=== PATIENT | female | born 1955 | race Caucasian/White ===

== ENCOUNTER → 2018-10-15 09:43 | Outpatient (CLI) | payer SELFPAY ==
[2018-10-15 08:57] VITALS: BMI 34.3
[2018-10-15 11:14] LABS: Hematocrit 39.9 % (37-47); Hemoglobin 12.7 g/dl (12.0-15.0); Mean Corp Hgb Conc 31.8 g/gl (32-36); Mean Corpuscular Hgb 28.4 pg (27.0-32.0); Mean Corpuscular Volume 89.3 fL (81-99); Mean Platelet Vol. 10.7 fl (6.2-12.0); Platelet Count 354 K/mm3 (150-450); RBC Distribution Width CV 14.1 % (11.6-14.6); RBC Distribution Width SD 45.1 fl (35.1-43.9); Red Blood Count 4.47 M/mm3 (4.2-5.4); Scan Indicated on CBC? Y/N NO
[2018-10-15 11:29] LABS: Microalbumin,Random Urine 85.5 mg/L (NO RANGE EST.); Microalbumin:Creatinine Ratio 191.3 mg/g CRE (<30 mg/g CRE)
[2018-10-15 11:32] LABS: Hemoglobin A1c 6.9 % (4.2-6.3)
[2018-10-15 11:54] LABS: ALB/GLOB Ratio 0.7 RATIO (0.9-2.4); AST(SGOT) 16 U/L (15-37); Alanine Aminotransfer ALT/SGPT 19 U/L (13-56); Alkaline Phosphatase 71 U/L (45-117); Anion Gap 9 (5-15); BUN 19 mg/dL (7-18); BUN/Creat Ratio 23.2 RATIO (10-20); Calcium,Total 9.2 mg/dL (8.5-10.1); Chloride 106 mmol/L (98-107); Creatinine, Serum 0.82 mg/dL (0.55-1.02); EST Glomerular Filtration Rate 75 mL/min (>60); Est Glom Filt Rate - Afr Amer 91 mL/min (>60); Globulin 4.3 g/dL (2.2-4.2); Glucose 84 mg/dL (74-106); Potassium 4.6 mmol/L (3.5-5.1); Protein, Total 7.3 g/dL (6.4-8.2); Sodium Level 142 mmol/L (136-145)
== END ==
PROVIDERS: Family Provider Family Medicine; PCP Family Medicine; Referring Provider Nurse Practitioner; Visit Provider Nurse Practitioner
DX: E11.42 Type 2 diabetes mellitus with diabetic polyneuropathy (principal)
CPT/HCPCS: 36415; 80053; 82043; 82570; 83036; 85027

== ENCOUNTER → 2019-01-27 17:02 | Outpatient (CLI) | payer SELFPAY ==
[2018-10-19 11:37] VITALS: BMI 34.3
[2019-01-27 17:49] LABS: International Normalized Ratio 1.8; Prothrombin Time (Protime)PT. 20.6 SECONDS (11.7-14.9)
== END ==
PROVIDERS: Family Provider Family Medicine; PCP Family Medicine; Referring Provider Family Medicine; Visit Provider Family Medicine
DX: I48.0 Paroxysmal atrial fibrillation (principal)
CPT/HCPCS: 85610

== ENCOUNTER → 2021-05-29 12:34 | Outpatient (CLI) | payer SELFPAY ==
[2018-10-19 11:37] VITALS: BMI 34.3
--- NOTE | 2021-05-29 12:37 | VDLE_ITS ---
Reason For Study: R/O DVT RIGHT LEFT CFV is compressible, spontaneous, phasic, GSV is normal. competent and demonstrates normal CFV is compressible, spontaneous, phasic, augmentation. competent, and demonstrates normal Procedure augmentation. This is a venous duplex using B-mode, color FV is compressible, spontaneous, phasic, flow and spectral Doppler. competent and demonstrates normal Exam performed in department. augmentation. A preliminary report was called and/or faxed POP V is compressible, spontaneous, phasic, to Yared. competent and demonstrates normal augmentation. T/P Trunk is compressible. PTV is compressible. LT PerV is compressible. Large nonvascularized structure noted in the left popliteal fossa measuring approximentl 1.74 x 4.67 cm. VL/Venous Duplex US, Unilateral Interpretation Summary Deep veins of the left lower extremity are patent and compressible segmentally. There is no evidence of left lower extremity deep vein thrombosis. Valvular competence appears intac t within the proximal deep venous system on the left . The left great saphenous vein appears patent a nd compressible segmentally. A non-vascular structure is noted in the left popliteal space, konstantin suring 1.74 cm x 4.67 cm. This may represent a popliteal cyst. Clinical correlation is advised. Ordering Physician: Dorie Vail Referring Physician: Rick Ruiz Performed By: Stacy Sol RVT
== END ==
LOC: CVS 12:35
PROVIDERS: PCP Family Medicine; Visit Provider Nurse Practitioner Family
DX: Z86.718 Personal history of other venous thrombosis and embolism (principal)
CPT/HCPCS: 93971